=== PATIENT | male | born 1975 | race Caucasian/White ===

== ENCOUNTER 2016-10-08 10:43 | Emergency (ER) | payer MEDICAID, OTHER ==
[~2016-10-08] VITALS: Ht 182.9 cm; Wt 75.0 kg
[~2016-10-08 10:43] MED LIST: HYDR-3240 PO
[2016-10-08] MEDS ORDERED: THIAMINE 100MG TABLET PO ONE (12:00)
[2016-10-08] MEDS ORDERED: SODIUM CHLORIDE 0.9% 1,000ML IVBOLUS ONE (12:00)
[2016-10-08] MEDS ORDERED: FAMOTIDINE 20 MG/2 ML IVP ONE (12:00)
[2016-10-08] MEDS ORDERED: LORazepam 2 MG/ML, 1ML IVPush ONE (12:00)
[2016-10-08] MEDS ORDERED: SODIUM CHLORIDE FLUSH 10ML SYR IVF ONE (12:00)
[2016-10-08] MEDS ORDERED: ONDANSETRON 2MG/ML, 2ML IVPush ONE ×2 (12:00→13:30)
[2016-10-08] MEDS ORDERED: LORazepam 2 MG/ML, 1ML IVPush PRN (12:00)
[2016-10-08 12:11] LABS: ASPARTATE AMINO TRANSFERASE 234 U/L (15-37); BLOOD UREA NITROGEN 7 mg/dL (7-18)
[2016-10-08 12:16] LABS: IS PT STATUS REG ER OR PRE ER? YES
[2016-10-08] MEDS ORDERED: ONDANSETRON 2MG/ML, 2ML ONE ×2 (12:17→13:37)
[2016-10-08] MEDS ORDERED: THIAMINE 100MG TABLET ONE (12:17)
[2016-10-08] MEDS ORDERED: FAMOTIDINE 20 MG/2 ML ONE (12:18)
[2016-10-08] MEDS ORDERED: LORazepam 2 MG/ML, 1ML ONE (12:18)
[2016-10-08 12:37] LABS: ANISOCYTOSIS 1+; LARGE PLATELETS 1+
[2016-10-08 13:45] VITALS: BP 105/71
== END 2016-10-08 14:01 | disposition home or self-care (01) ==
LOC: ED 12:47
DX: K29.20 Alcoholic gastritis without bleeding (principal); F10.239 Alcohol dependence with withdrawal, unspecified
CPT/HCPCS: 36415; 71010; 80053; 83690; 84484; 85025; 93005; 96361; 96374; 96375; 96376; 99285; J2060; J2405; J7030; S0028

== ENCOUNTER 2016-12-22 10:38 | Emergency (ER) | payer OTHER ==
[~2016-12-22] VITALS: Ht 188 cm; Wt 68.2 kg
[2016-12-22 10:41] VITALS: BP 140/110
[2016-12-22] MEDS ORDERED: DIPH,PERTUSS(ACELL),TET VAC/PF 0.5 ML IM-VACC ONE ×2 (11:46→12:00)
== END 2016-12-22 12:06 | disposition home or self-care (01) ==
LOC: ED 12:00
DX: S01.512A Laceration without foreign body of oral cavity, initial encounter (principal); X58.XXXA Exposure to other specified factors, initial encounter; Y93.89 Activity, other specified; Y92.89 Other specified places as the place of occurrence of the external cause; Y99.8 Other external cause status
CPT/HCPCS: 99283

== ENCOUNTER 2017-04-26 08:36 | Emergency (ER) | payer SELFPAY ==
[~2017-04-26] VITALS: Ht 188 cm; Wt 71.2 kg
[2017-04-26 08:46] VITALS: BP 160/94
[2017-04-26] MEDS ORDERED: LORazepam 1MG TABLET ONE (09:11)
[2017-04-26] MEDS ORDERED: LORazepam 1MG TABLET PO ONE (09:30)
== END 2017-04-26 09:35 | disposition home or self-care (01) ==
LOC: ED 09:10
DX: F10.239 Alcohol dependence with withdrawal, unspecified (principal); Y90.9 Presence of alcohol in blood, level not specified
CPT/HCPCS: 99283

== ENCOUNTER 2017-04-27 08:37 | Emergency (ER) | payer SELFPAY ==
[~2017-04-27] VITALS: Ht 188 cm; Wt 71.1 kg
[2017-04-27 08:39] VITALS: BP 130/81
[2017-04-27] MEDS ORDERED: hydrOXYzine 50 MG/ML IM ONE (09:30)
[2017-04-27] MEDS ORDERED: hydrOXyzine 50MG TABLET PO ONE (11:00)
== END 2017-04-27 10:56 | disposition home or self-care (01) ==
LOC: ED 08:51
DX: S40.862A Insect bite (nonvenomous) of left upper arm, initial encounter (principal); S40.861A Insect bite (nonvenomous) of right upper arm, initial encounter; S20.369A Insect bite (nonvenomous) of unspecified front wall of thorax, initial encounter; F10.20 Alcohol dependence, uncomplicated; W57.XXXA Bitten or stung by nonvenomous insect and other nonvenomous arthropods, initial encounter; Y93.89 Activity, other specified; Y92.89 Other specified places as the place of occurrence of the external cause; Y99.8 Other external cause status
CPT/HCPCS: 99283; Q0177